=== PATIENT | female | born 1965 | race Caucasian/White ===

== ENCOUNTER 2022-06-19 08:46 | Outpatient (CLI) | payer OTHER | END 2022-06-19 09:06 | disposition home or self-care (01) | LOC: SONOGRAMA 08:46 | DX: M79.651 Pain in right thigh (principal); M54.50 Low back pain, unspecified ==

== ENCOUNTER 2022-06-27 07:39 | Outpatient (CLI) | payer OTHER | END 2022-06-27 07:44 | disposition home or self-care (01) | LOC: LAB 07:39 | DX: E66.9 Obesity, unspecified (principal); E53.8 Deficiency of other specified B group vitamins; R60.9 Edema, unspecified ==

== ENCOUNTER 2022-09-02 14:08 | Emergency (ER) | payer OTHER ==
[~2022-09-02] VITALS: Ht 160 cm; Wt 124.7 kg
[~2022-09-02 14:08] MED LIST: CYCLOBENZAPRINE10 MG PO; DOLOGESIC 500-1 EACH PO; METHOCARBAMOL500 MG PO
== END 2022-09-02 17:02 | disposition home or self-care (01) ==
LOC: ER 14:08
DX: H66.91 Otitis media, unspecified, right ear (principal); Z88.6 Allergy status to analgesic agent

== ENCOUNTER 2022-11-13 11:07 | Outpatient (CLI) | payer OTHER ==
[~2022-11-13 11:07] MED LIST changes: +METHOCARBAMOL750 MG PO
== END 2022-11-13 11:31 | disposition home or self-care (01) ==
LOC: LAB 11:07
PROVIDERS: ATTEND Internal Medicine
DX: E66.01 Morbid (severe) obesity due to excess calories (principal); I10 Essential (primary) hypertension; E03.9 Hypothyroidism, unspecified; Z01.810 Encounter for preprocedural cardiovascular examination; E55.9 Vitamin D deficiency, unspecified; E66.8 Other obesity; G62.9 Polyneuropathy, unspecified

== ENCOUNTER 2022-11-14 09:11 | Outpatient (CLI) | payer OTHER | END 2022-11-14 09:12 | disposition home or self-care (01) | LOC: LAB 09:11 | PROVIDERS: ATTEND Internal Medicine | DX: E03.9 Hypothyroidism, unspecified (principal); E66.01 Morbid (severe) obesity due to excess calories; I10 Essential (primary) hypertension; Z01.810 Encounter for preprocedural cardiovascular examination; E55.9 Vitamin D deficiency, unspecified; E66.8 Other obesity; G62.9 Polyneuropathy, unspecified ==

== ENCOUNTER 2022-11-25 | Outpatient (CLI) | payer OTHER | END 2022-11-25 00:15 | disposition home or self-care (01) | LOC: PPH VACUNA | PROVIDERS: ATTEND Internal Medicine | DX: Z23 Encounter for immunization (principal) ==

== ENCOUNTER → 2023-02-26 08:34 | Outpatient (CLI) | payer OTHER | END | disposition home or self-care (01) | LOC: LAB 08:34 | PROVIDERS: ATTEND Internal Medicine | DX: E66.01 Morbid (severe) obesity due to excess calories (principal); I10 Essential (primary) hypertension; E03.9 Hypothyroidism, unspecified; Z01.810 Encounter for preprocedural cardiovascular examination; E55.9 Vitamin D deficiency, unspecified; E66.8 Other obesity; G62.9 Polyneuropathy, unspecified ==

== ENCOUNTER 2023-04-01 13:31 | Outpatient (CLI) | payer OTHER | END 2023-04-01 13:48 | disposition home or self-care (01) | LOC: MRI 13:31 | PROVIDERS: ATTEND Physical Medicine & Rehabilitation | DX: M54.59 Other low back pain (principal) | CPT/HCPCS: 72148 ==

== ENCOUNTER 2023-04-06 08:02 | Outpatient (CLI) | payer OTHER | END 2023-04-06 08:14 | disposition home or self-care (01) | LOC: NUCLEAR 08:02 | PROVIDERS: ATTEND Internal Medicine | DX: I25.118 Atherosclerotic heart disease of native coronary artery with other forms of angina pectoris (principal); R06.00 Dyspnea, unspecified; I11.9 Hypertensive heart disease without heart failure; E78.2 Mixed hyperlipidemia ==

== ENCOUNTER → 2023-10-02 08:31 | Outpatient (CLI) | payer OTHER ==
[2023-10-02 12:42] LABS: HEMATOCRIT 42.8 % (36.0-45.00); HEMOGLOBIN 14.6 g/dL (12.0-15.00); MEAN CELL VOLUME 94.3 fL (80.00-100.00); MEAN CORPUSCULAR HEMOGLOBIN 32.1 pg (27.00-32.0); PLATELET COUNT 238 K/uL (150-450); RED BLOOD COUNT 4.53 M/uL (4.00-6.00); RED CELL DISTRIBUTION WIDTH 13.5 % (11.5-14.5)
[2023-10-02 13:31] LABS: ALBUMIN 3.8 gm/dL (3.4-5.0); BILIRUBIN TOTAL 0.36 mg/dL (0.3-1.2); CALCIUM 9.4 mg/dL (8.5-10.1); CHOL HDL RATIO 2.7 (0-5.0); CREATININE SERUM 0.68 mg/dL (0.55-1.02); GFR 89.5; GLOBULINA 3.5 G/DL (2.4-3.5); POTASSIUM 4.08 mEq/L (3.5-5.1); T4 TOTAL 9.28 UG/DL (4.8-13.9); TOTAL PROTEIN 7.3 gm/dL (6.4-8.2); TSH 1.74 uIU/mL (0.358-3.74)
== END | disposition home or self-care (01) ==
LOC: LAB 08:31
PROVIDERS: ATTEND Internal Medicine
DX: E66.01 Morbid (severe) obesity due to excess calories (principal); I10 Essential (primary) hypertension; E03.9 Hypothyroidism, unspecified; E55.9 Vitamin D deficiency, unspecified; E66.8 Other obesity; G62.9 Polyneuropathy, unspecified; E11.9 Type 2 diabetes mellitus without complications; E11.51 Type 2 diabetes mellitus with diabetic peripheral angiopathy without gangrene